=== PATIENT | female | born 1985 | race Caucasian/White ===

== ENCOUNTER 2021-03-04 10:30 | Outpatient (CLI) | payer MEDICAID, SELFPAY ==
[2021-03-04 18:41] LABS: Basophils Percent Auto 0.4 % (0.2-1.2); Eosinophils Absolute Auto 0.1 K/mm3 (0-0.3); Eosinophils Percent Auto 1.2 % (0-4.4); Hematocrit 42.5 % (37.0-47.0); Hemoglobin 13.8 g/dL (12.0-15.0); Immature Granulocyte Absolute 0.11 K/mm3 (0.00-0.031); Immature Granulocyte Percent A 1.2 % (0-0.5); Lymphocytes Absolute Auto 1.85 K/mm3 (0.9-3.2); Lymphocytes Percent Auto 19.9 % (18.3-44.2); Mean Corpuscular HGB Conc 32.5 g/dl (32-36); Mean Corpuscular Hemoglobin 29.4 pg (26-34); Mean Corpuscular Volume 90.6 fl (80-100); Mean Platelet Volume 11.3 fl (7.4-10.4); Monocytes Absolute Auto 0.6 K/mm3 (0.1-0.6); Monocytes Percent Auto 6.4 % (2.6-8.5); Neutrophils Absolute Auto 6.6 K/mm3 (1.3-6.7); Neutrophils Percent Auto 70.9 % (45.5-73.1); Platelet Count Result 253 k/mm3 (150-375); Red Blood Count 4.69 M/mm3 (4.2-5.4); White Blood Count 9.3 K/mm3 (4.5-10.0)
[2021-03-04 18:46] LABS: Add Urine Microscopic? NO; Appearance Urine Clear (Clear); Bilirubin Urine Negative (Negative); Blood Urine Negative (Negative); Color Urine Yellow (Yellow); Glucose Urine UA Negative (Negative); Ketones Urine Negative (Negative); Leukocyte Esterase Ur Negative LEU/UL (NEGATIVE); Nitrate Urine Negative (Negative); Protein Urine Negative (Negative); Specific Grav Ur 1.011 (1.001-1.035); Urobilinogen Urine Negative mg/dL (<2.0)
[2021-03-04 19:12] LABS: Vitamin D 25 Hydroxy 31.8 ng/mL
[2021-03-04 23:35] LABS: Hepatitis B Surface Antigen Negative (Negative)
[2021-03-04 23:39] LABS: HIV 1/2 Ab P24 Ag Result Negative (Negative)
[2021-03-04 23:47] LABS: Hepatitis C Virus Antibody Negative (Negative)
[2021-03-05 10:14] LABS: Rapid Plasma Reagin Non-Reactive (NonReactive)
[2021-03-11 15:21] LABS: CF Result NEGATIVE (NEGATIVE); Ethnicity NG
[2021-03-11 21:57] LABS: Hematocrit 41.2 % (35.0-45.0); Hemoglobin 13.5 g/dL (11.7-15.5); MCH 29.9 pg (27.0-33.0); MCV 91.4 FL (80.0-100.0); RDW 14.8 % (11.0-15.0); Red Blood Cell Count 4.51 Mill/uL (3.80-5.10)
== END 2021-03-04 10:31 | disposition home or self-care (01) ==
PROVIDERS: Visit Provider Obstetrics & Gynecology
DX: Z34.90 Encounter for supervision of normal pregnancy, unspecified, unspecified trimester (principal); Z3A.00 Weeks of gestation of pregnancy not specified
CPT/HCPCS: 36415; 81003; 81220; 81243; 82306; 83021; 84443; 85025; 86592; 86703; 86762; 86787; 86803; 86850; 86900; 86901; 87086; 87088; 87340; G0432

== ENCOUNTER 2021-04-17 10:10 | Outpatient (CLI) | payer BC, SELFPAY ==
[2021-04-24 14:03] LABS: AFP, Serum 57.5; Estriol, Free 2.74; Inhibin A, Dimeric 129; hCG MoM 0.74; hCG, Serum 12.6
[2021-04-24 14:04] LABS: Maternal Weight 175; Number of Fetuses 1
[2021-04-24 14:05] LABS: Cigarette Smoker N
== END 2021-04-17 10:11 | disposition home or self-care (01) ==
PROVIDERS: PCP Obstetrics & Gynecology; Visit Provider Obstetrics & Gynecology
DX: Z36.1 Encounter for antenatal screening for raised alphafetoprotein level (principal)
CPT/HCPCS: 36415; 82105; 82677; 84702; 86336

== ENCOUNTER 2021-05-29 11:09 | Outpatient (CLI) | payer BC, SELFPAY ==
[2021-05-29 12:41] LABS: Glucose 1 Hour PP 50gm Dose 154 mg/dL
== END 2021-05-29 11:10 | disposition home or self-care (01) ==
PROVIDERS: Visit Provider Obstetrics & Gynecology
DX: Z34.90 Encounter for supervision of normal pregnancy, unspecified, unspecified trimester (principal); Z3A.00 Weeks of gestation of pregnancy not specified
CPT/HCPCS: 36415; 82947

== ENCOUNTER 2021-06-05 07:38 | Outpatient (CLI) | payer BC, SELFPAY ==
[2021-06-05 08:17] LABS: Basophils Percent Auto 0.4 % (0.2-1.2); Eosinophils Absolute Auto 0.2 K/mm3 (0-0.3); Eosinophils Percent Auto 2.1 % (0-4.4); Hemoglobin 12.3 g/dL (12.0-15.0); Immature Granulocyte Absolute 0.27 K/mm3 (0.00-0.031); Immature Granulocyte Percent A 2.5 % (0-0.5); Lymphocytes Percent Auto 21.2 % (18.3-44.2); Mean Corpuscular HGB Conc 32.4 g/dl (32-36); Mean Corpuscular Hemoglobin 29.6 pg (26-34); Mean Corpuscular Volume 91.6 fl (80-100); Monocytes Absolute Auto 0.9 K/mm3 (0.1-0.6); Monocytes Percent Auto 8.2 % (2.6-8.5); Neutrophils Absolute Auto 7.1 K/mm3 (1.3-6.7); Neutrophils Percent Auto 65.6 % (45.5-73.1); Platelet Count Result 236 k/mm3 (150-375); Red Blood Count 4.15 M/mm3 (4.2-5.4); White Blood Count 10.9 K/mm3 (4.5-10.0)
[2021-06-05 08:24] LABS: Glucose Fasting Gestational 87 mg/dL (>/=95)
[2021-06-05 09:07] LABS: HIV 1/2 Ab P24 Ag Result Negative (Negative)
[2021-06-05 10:04] LABS: Glucose 1 Hour Gest 141 mg/dL (>/=180)
[2021-06-05 10:52] LABS: Glucose 2 Hour Gest 132 mg/dL (>/= 155)
[2021-06-05 11:40] LABS: Rapid Plasma Reagin Non-Reactive (NonReactive)
[2021-06-05 11:57] LABS: Glucose 3 Hour Gest 92 mg/dL (>/=140)
== END 2021-06-05 07:39 | disposition home or self-care (01) ==
PROVIDERS: Visit Provider Obstetrics & Gynecology
DX: O99.810 Abnormal glucose complicating pregnancy (principal); Z3A.00 Weeks of gestation of pregnancy not specified
CPT/HCPCS: 36415; 82951; 82952; 85025; 86592; 86703; G0432

== ENCOUNTER 2021-06-26 16:28 | Observation (INO) | payer BC, SELFPAY ==
[2021-06-26 16:41] VITALS: BP 117/81; PULSE 79; RESP 18; TEMP 37.1
[2021-06-26 17:10] VITALS: BMI 28.9
--- NOTE | 2021-07-08 15:08 | PM.OBTRLD ---
OB - Triage/Final Diagnosis Visit Information Comments/Additional reasons for admission: I have assessed the risk for this patient, Anamika Ortiz, and determined that she would benefit from observation care. Final Diagnosis (1) Decreased movement: Code(s): O36.8190 - Decreased movements, unspecified trimester, not applicable or unspecified Status: Acute
== END 2021-06-26 17:30 | disposition home or self-care (01) ==
PROVIDERS: Admitting Provider Obstetrics & Gynecology; Visit Provider Obstetrics & Gynecology
DX: O36.8130 Decreased fetal movements, third trimester, not applicable or unspecified (principal); Z3A.30 30 weeks gestation of pregnancy
CPT/HCPCS: G0378; G0379

== ENCOUNTER 2021-07-06 10:11 | Outpatient (RCR) | payer BC, SELFPAY ==
[2021-07-07] MEDS: RHO(D) IMMUNE GLOBULIN 300 MCG/2 ML SYRINGE IM (14:15)
== END 2021-10-04 23:59 | disposition home or self-care (01) ==
LOC: ANHLAB 10:11
PROVIDERS: Visit Provider Obstetrics & Gynecology
DX: Z29.13 Encounter for prophylactic Rho(D) immune globulin (principal); O36.0190 Maternal care for anti-D [Rh] antibodies, unspecified trimester, not applicable or unspecified; Z3A.00 Weeks of gestation of pregnancy not specified
CPT/HCPCS: 36415; 85461; 90384; 96372; J2790

== ENCOUNTER 2021-07-29 12:01 | Outpatient (CLI) | payer BC, SELFPAY ==
[2021-07-29] VITALS (71 sets, daily range): BP systolic 93–137; BP diastolic 54–89; PULSE 57–86; TEMP 37.2; O2SAT 91–100; BMI 29.7
--- NOTE | 2021-07-29 12:36 | PC.NURSE ---
Dr. Veloz informed of pt's arrival with c/o headache for most of the week. Discussed initial BP that was taken before 5 mins of rest by pc tech and additional BP's. Orders received.
[2021-07-29] MEDS: ACETAMINOPHEN 500 MG TABLET 1000 MG PO (14:15)
[2021-07-29 14:29] LABS: Basophils Percent Auto 0.2 % (0.2-1.2); Eosinophils Absolute Auto 0.1 K/mm3 (0-0.3); Hemoglobin 12.9 g/dL (12.0-15.0); Immature Granulocyte Absolute 0.18 K/mm3 (0.00-0.031); Immature Granulocyte Percent A 1.7 % (0-0.5); Lymphocytes Absolute Auto 1.62 K/mm3 (0.9-3.2); Lymphocytes Percent Auto 15.2 % (18.3-44.2); Mean Corpuscular HGB Conc 33.9 g/dl (32-36); Mean Corpuscular Hemoglobin 31.1 pg (26-34); Mean Corpuscular Volume 91.6 fl (80-100); Mean Platelet Volume 11.2 fl (7.4-10.4); Monocytes Absolute Auto 0.8 K/mm3 (0.1-0.6); Monocytes Percent Auto 7.1 % (2.6-8.5); Neutrophils Percent Auto 74.8 % (45.5-73.1); Platelet Count Result 225 k/mm3 (150-375); Red Blood Count 4.15 M/mm3 (4.2-5.4); Red Cell Distribution Width 12.7 % (11.5-14.5); White Blood Count 10.7 K/mm3 (4.5-10.0)
[2021-07-29 14:32] LABS: Add Urine Microscopic? YES; Appearance Urine Cloudy (Clear); Bilirubin Urine Negative (Negative); Blood Urine Negative (Negative); Color Urine Yellow (Yellow); Glucose Urine UA 1+ mg/dL (Negative); Ketones Urine Negative (Negative); Leukocyte Esterase Ur Negative LEU/UL (Negative); Mucus Urine Rare /lpf; Nitrate Urine Negative (Negative); Protein Urine Negative (Negative); RBC Urine 0-2 /hpf (0-2); Specific Grav Ur 1.009 (1.001-1.035); Squamous Epithelial Cell Urine Many /hpf (Few); Urobilinogen Urine Negative mg/dL (<2.0); WBC Urine 0-3 /hpf
[2021-07-29 14:38] LABS: Alanine Aminotransferase 18 U/L (4-35); Albumin Level 3.8 g/dL (3.5-5.1); Alkaline Phosphatase 93 U/L (38-126); Anion Gap 10 mmol/L (8-16); Aspartate Amino Transferase 21 U/L (14-36); Bilirubin,Total 0.3 mg/dL (0.2-1.3); Blood Urea Nitrogen 7 mg/dL (7-17); Calcium 9.1 mg/dL (8.4-10.2); Carbon Dioxide 21 mmol/L (22-30); Chloride 107 mmol/L (98-107); Estimated Glomerular Filt Rate > 60; Glucose 127 mg/dL (65-110); Potassium 3.8 mmol/L (3.4-5.0); Sodium 138 mmol/L (137-145); Uric Acid 4.6 mg/dL (2.5-7.5)
--- NOTE | 2021-07-29 15:57 | PC.NURSE ---
Called Dr. Veloz and she had already reviewed pt's labs (except Total protein/creatinine ratio that isn't back yet), and BP's. Informed her pt's headache isn't any better. Orders received.
[2021-07-29 16:53] LABS: Total Protein Urine Random 9 mg/dL; Ur Ttl Prot Creatinine Ratio 0.23 mg/mg (0-0.20)
--- NOTE | 2021-07-29 17:38 | PC.NURSE ---
Dr. Veloz informed of total protein/creatinine ratio, headache still a 4 after both Fioricets. Discussed pt's poor food intake today- cereal this morning, bagel on the way here, Shayla Mist and saltines here when she was nauseated. Encouraged to eat when nausea resolved, but just finally recently ordered food. Order for discharge received.
--- NOTE | 2021-07-29 17:46 | PC.NURSE ---
Pt eating before going home.
== END 2021-07-29 18:02 | disposition home or self-care (01) ==
LOC: ANHOBOP 12:06 → ANHOBPP 12:06
PROVIDERS: Visit Provider Obstetrics & Gynecology
DX: O13.9 Gestational [pregnancy-induced] hypertension without significant proteinuria, unspecified trimester (principal); Z3A.00 Weeks of gestation of pregnancy not specified
CPT/HCPCS: 36415; 59025; 80053; 81001; 82570; 84156; 84550; 85025; 99199; A9270

== ENCOUNTER 2021-08-09 16:48 | Inpatient (IN) | payer BC, SELFPAY ==
[2021-08-09] VITALS (10 sets, daily range): BP systolic 98–149; BP diastolic 57–92; PULSE 68–91; TEMP 36.6; BMI 30.3
--- NOTE | 2021-08-09 16:48 | LDADM ---
This patient, Anamika Ortiz, was admitted to Labor/Delivery/Recovery 108 on 08/09/21 at 16:48. Plans for labor, pain management and were discussed with patient. Patient/family oriented to hospital policies and general routines including ID bracelet, bed and alarms, visiting hours, pain management, procedures, bathroom and other care routines, personal items, smoking policy, room service/diet and guest tray routines, security routines, and visiting hours. Patient/Family are encouraged to report perceived risks to care and to ask questions if they do not understand what they are told or what they should do. See OBIX for further documentation.
[2021-08-09 17:31] LABS: Basophils Percent Auto 0.2 % (0.2-1.2); Eosinophils Absolute Auto 0.1 K/mm3 (0-0.3); Eosinophils Percent Auto 0.6 % (0-4.4); Hematocrit 38.2 % (37.0-47.0); Hemoglobin 13.1 g/dL (12.0-15.0); Immature Granulocyte Absolute 0.15 K/mm3 (0.00-0.031); Immature Granulocyte Percent A 1.2 % (0-0.5); Lymphocytes Absolute Auto 1.66 K/mm3 (0.9-3.2); Lymphocytes Percent Auto 13.6 % (18.3-44.2); Mean Corpuscular HGB Conc 34.3 g/dl (32-36); Mean Corpuscular Hemoglobin 30.9 pg (26-34); Mean Corpuscular Volume 90.1 fl (80-100); Mean Platelet Volume 11.5 fl (7.4-10.4); Monocytes Absolute Auto 0.8 K/mm3 (0.1-0.6); Monocytes Percent Auto 6.9 % (2.6-8.5); Neutrophils Absolute Auto 9.5 K/mm3 (1.3-6.7); Neutrophils Percent Auto 77.5 % (45.5-73.1); Platelet Count Result 238 k/mm3 (150-375); Red Blood Count 4.24 M/mm3 (4.2-5.4); White Blood Count 12.3 K/mm3 (4.5-10.0)
[2021-08-09] MEDS: DINOPROSTONE 10 MG VAG INSERT VAGINAL (17:37)
[2021-08-09 17:43] LABS: Alanine Aminotransferase 23 U/L (4-35); Albumin Level 4.1 g/dL (3.5-5.1); Alkaline Phosphatase 110 U/L (38-126); Anion Gap 11 mmol/L (8-16); Aspartate Amino Transferase 27 U/L (14-36); Bilirubin,Total 0.3 mg/dL (0.2-1.3); Blood Urea Nitrogen 6 mg/dL (7-17); Carbon Dioxide 19 mmol/L (22-30); Chloride 105 mmol/L (98-107); Estimated CRCL calculation 120 ml/min; Estimated Glomerular Filt Rate > 60; Glucose 118 mg/dL (65-110); Potassium 3.9 mmol/L (3.4-5.0); Sodium 135 mmol/L (137-145); Uric Acid 5.6 mg/dL (2.5-7.5)
[2021-08-10] VITALS (187 sets, daily range): BP systolic 78–152; BP diastolic 39–94; PULSE 62–266; RESP 16; TEMP 36.4–37.3; O2SAT 94–100
[2021-08-10] MEDS: fentaNYL CITRATE INJ (*CRX) 100 MCG/2 ML VIAL 50 MCG IV PUSH ×2 (01:38→02:56)
[2021-08-10] MEDS: LACTATED RINGERS 1,000 ML 125 ML IV CONT ×3 (05:43→13:24)
[2021-08-10] MEDS: OXYTOCIN 30 UNITS/NS 500 ML 30 UNITS/500 ML BAG 6 UNITS IV CONT (05:44)
--- NOTE | 2021-08-10 06:27 | WPDANESEPP ---
Anes - Eval Pre Procedure Procedure: Labor epidural Date/Time: 08/10/21 06:27 Surgeon: Magdiel Preop Diagnosis: Abd pain with contractions Pre Op Diagnosis: Induction of Labor Patient Data Age: 35 Gender: F Height: 1.66 m Weight: 84 kg Last Vital Signs Temp 98 F 08/09/21 17:11 Pulse 82 08/10/21 06:26 BP 115/63 08/10/21 06:26 Pulse Ox 98 08/10/21 06:26 Allergies Allergy/AdvReac Type Severity Reaction Status Date / Time peanut Allergy Severe Anaphylaxis Verified 08/05/21 12:32 Home Medications Medication Instructions Recorded Confirmed Type prenat.vits,misbah,ftm-zvoj-tfesf 1 tablet PO DAILY 02/03/21 08/09/21 History Unisom (doxylamine) 25 mg PO HS PRN 06/26/21 08/09/21 History calcium carbonate [Tums] 200 mg PO QID PRN 06/26/21 08/09/21 History acetaminophen [Tylenol Extra 1,000 mg PO Q6H PRN 07/29/21 08/09/21 History Strength] Laboratory Tests 08/09/21 08/09/21 08/09/21 17:16 17:16 17:16 WBC 12.3 K/mm3 H K/mm3 (4.5-10.0) RBC 4.24 M/mm3 M/mm3 (4.2-5.4) Hgb 13.1 g/dL g/dL (12.0-15.0) Hct 38.2 % % (37.0-47.0) MCV 90.1 fl fl (80-100) MCH 30.9 pg pg (26-34) MCHC 34.3 g/dl g/dl (32-36) RDW 13.0 % % (11.5-14.5) Plt Count 238 k/mm3 k/mm3 (150-375) MPV 11.5 fl H fl (7.4-10.4) Immature Gran % (Auto) 1.2 % H % (0-0.5) Neut % (Auto) 77.5 % H % (45.5-73.1) Lymph % (Auto) 13.6 % L % (18.3-44.2) Mcleod % (Auto) 6.9 % % (2.6-8.5) Eos % (Auto) 0.6 % % (0-4.4) Baso % (Auto) 0.2 % % (0.2-1.2) Lymph # (Auto) 1.66 K/mm3 K/mm3 (0.9-3.2) Mcleod # (Auto) 0.8 K/mm3 H K/mm3 (0.1-0.6) Eos # (Auto) 0.1 K/mm3 K/mm3 (0-0.3) Baso # (Auto) 0.0 K/mm3 K/mm3 (0.0-0.1) Abs Immat Gran (auto) 0.15 K/mm3 H K/mm3 (0.00-0.031) Absolute Neuts (auto) 9.5 K/mm3 H K/mm3 (1.3-6.7) Absolute Nucleated RBC 0.0 K/mm3 K/mm3 (0.0-0.012) Nucleated RBC % 0.0 % % (0.0-0.2) Sodium 135 mmol/L L mmol/L (137-145) Potassium 3.9 mmol/L mmol/L (3.4-5.0) Chloride 105 mmol/L mmol/L (98-107) Carbon Dioxide 19 mmol/L L mmol/L (22-30) Anion Gap 11 mmol/L mmol/L (8-16) BUN 6 mg/dL L mg/dL (7-17) Creatinine 0.60 mg/dL L mg/dL (0.7-1.0) Estim Creat Clear Calc 120 ml/min ml/min Estimated GFR > 60 (59 - ) Glucose 118 mg/dL H mg/dL (65-110) Uric Acid Cancelled 5.6 mg/dL mg/dL (2.5-7.5) Calcium 9.0 mg/dL mg/dL (8.4-10.2) Total Bilirubin 0.3 mg/dL mg/dL (0.2-1.3) AST 27 U/L U/L (14-36) ALT 23 U/L U/L (4-35) Alkaline Phosphatase 110 U/L U/L (38-126) Total Protein 7.0 g/dL g/dL (6.3-8.2) Albumin 4.1 g/dL g/dL (3.5-5.1) RPR Blood Type Antibody Screen Antibody Identification Antigen Identification [place], IgG Interpret [place], Poly Interpret [place], Complement Interp 08/09/21 08/09/21 17:16 17:16 WBC RBC Hgb Hct MCV MCH MCHC RDW Plt Count MPV Immature Gran % (Auto) Neut % (Auto) Lymph % (Auto) Mcleod % (Auto) Eos % (Auto) Baso % (Auto) Lymph # (Auto) Mcleod # (Auto) Eos # (Auto) Baso # (Auto) Abs Immat Gran (auto) Absolute Neuts (auto) Absolute Nucleated RBC Nucleated RBC % Sodium Potassium Chloride Carbon Dioxide Anion Gap BUN Creatinine Estim Creat Clear Calc Estimated GFR Glu
--- NOTE | 2021-08-10 06:31 | PM.IMHP ---
H&P: HPI History of Present Illness Date/Time: 08/10/21 06:31 G1 at 37+2 for induction of labor due to gestational hypertension. She denies JUAN/visual changes. Normal movement. Occasional contractions. No leaking fluid or bleeding. c/b right club foot adn possible polydactyly, [facility] Chief Complaint: gestational hypertension Review of Systems Review of Systems: All systems reviewed & are unremarkable except as noted in HPI and below PMFSH Past Medical History Medical History (Updated 08/10/21 @ 06:35 by Cici Veloz MD) Allergies Anxiety Headache and not yet delivered Surgical History Surgical History H/O hand surgery Family History Family History Father Diabetes mellitus Hypertension Mother Depression Heart problem Sibling Depression Grandparent Diabetes mellitus Depression Social History Social History Smoking status: Never smoker Alcohol intake: former Substance use: never Spiritual care concerns: No Meds Home Medications and Allergies Home Medications Medication Instructions Recorded Confirmed Type prenat.vits,misbah,snz-biho-ybsyr 1 tablet PO DAILY 02/03/21 08/09/21 History Unisom (doxylamine) 25 mg PO HS PRN 06/26/21 08/09/21 History calcium carbonate [Tums] 200 mg PO QID PRN 06/26/21 08/09/21 History acetaminophen [Tylenol Extra 1,000 mg PO Q6H PRN 07/29/21 08/09/21 History Strength] Allergies Allergy/AdvReac Type Severity Reaction Status Date / Time peanut Allergy Severe Anaphylaxis Verified 08/05/21 12:32 Vital Signs Vital Signs - 24 hr 08/09/21 17:11 08/09/21 17:12 08/09/21 17:15 Temperature 36.6 C Pulse Rate 82 68 Blood Pressure 137/86 126/88 Pulse Oximetry 08/09/21 17:46 08/09/21 18:00 08/09/21 18:15 Temperature Pulse Rate 78 88 87 Blood Pressure 140/72 98/57 L 106/68 Pulse Oximetry 08/09/21 18:30 08/09/21 18:45 08/09/21 19:15 Temperature Pulse Rate 85 91 85 Blood Pressure 116/60 111/71 111/62 Pulse Oximetry 08/09/21 19:30 08/10/21 00:08 08/10/21 03:22 Temperature Pulse Rate 83 73 65 Blood Pressure 149/92 H 141/92 H 129/89 Pulse Oximetry 08/10/21 05:39 08/10/21 06:06 08/10/21 06:11 Temperature Pulse Rate 63 Blood Pressure 133/81 Pulse Oximetry 100 99 08/10/21 06:12 08/10/21 06:14 08/10/21 06:15 Temperature Pulse Rate 84 96 266 H Blood Pressure 152/88 H 137/77 130/80 Pulse Oximetry 08/10/21 06:16 08/10/21 06:17 08/10/21 06:18 Temperature Pulse Rate 241 H 88 Blood Pressure 143/76 H 120/67 Pulse Oximetry 100 08/10/21 06:20 08/10/21 06:21 08/10/21 06:22 Temperature Pulse Rate 86 79 Blood Pressure 123/78 120/67 Pulse Oximetry 98 08/10/21 06:24 08/10/21 06:26 08/10/21 06:28 Temperature Pulse Rate 84 82 80 Blood Pressure 108/66 115/63 126/65 Pulse Oximetry 98 08/10/21 06:30 Temperature Pulse Rate 79 Blood Pressure 115/71 Pulse Oximetry Exam Const: General: healthy appearing, alert and awake Resp: Auscultation: clear to auscultation bilaterally Cardio: Rate: regular rate Rhythm: regular rhythm GI: Inspection: distended GI Palp: Yes Soft to palpation, Yes Tenderness to palpation present (GI) and Yes Other GI palpation findings present (gravid) : Manual OB Exam: dilated fingertip, effaced 25% and station -2 H&P: Results Labs Labs: Short CBC 08/09/21 08/09/21 Range/Units 17:16 17:16 WBC 12.3 H (4.5-10.0) K/mm3 Hgb 13.1 (12.0-15.0) g/dL Hct 38.2 (37.0-47.0) % Plt Count 238 (150-375) k/mm3 Blood Type O Negative Antibody Screen Positive Antibody Identification Passive Due to RH Imm Glob Antigen Identification Cancelled [place], IgG Interpret Not Performed D
[2021-08-10] MEDS: ONDANSETRON INJ 4 MG/2 ML VIAL IV PUSH ×3 (06:51→18:40)
[2021-08-10] MEDS: PHENYLEPHRINE 1,000 MCG/10 ML SYRINGE 100 MCG IV PUSH ×2 (06:55→12:48)
--- NOTE | 2021-08-10 08:12 | WPDOBADMIT ---
Obstetrics - Admit Note Admission Note: record reviewed. No pertinent additions to the history and/or any subsequent changes in the physical findings that are not consistent with the expected course of the were found. Additions to the history and/or subsequent changes in the physical findings follow. Cervix /-2. AROM with lightly bloody fluid noted. Fetus reactive with no decels in last 30-45 minutes, had a few late decels and one prolonged just after epidural placed and maternal BP dropped, but all that resolved. FHT category II. Continue pitocin. GBS negative. Plan to collect cord blood microarray per genetics after
[2021-08-10 10:40] LABS: Rapid Plasma Reagin Non-Reactive (NonReactive)
--- NOTE | 2021-08-10 15:53 | PM.OBPRVD ---
OB - Delivery Note Procedure Delivery date: 08/10/21 Procedure: events: Induced HTN and Labor Induction Induction method: per misoprostol protocol and per pitocin protocol Delivery augmentation: rupture of membranes Delivery monitor: external FHT and internal uterine Route of delivery: Episiotomy description: None Laceration Description: Periurethral (left) and Perineal - 1st Degree Delivery repair: vicryl (3-0) Specimen: Yes (placenta) Quantitative Blood Loss (ml): 92 Anesthesia type: Epidural Disposition: floor Complications: fleshy extra digit on one hand, right club foot Baby Date of : 08/10/21 Weeks of gestation at delivery: 37 Infant gender: Female Weight (pounds): 4 Weight (ounces): 13 presentation: vertex position: Right Occiput Anterior Placenta delivery description: Spontaneous cord vessel description: 3 Vessels and Clamped/Cut (cord short, unable to put baby on mom's chest until cord clamped) score one minute: 9 score five minutes: 9
[2021-08-10] MEDS: OXYTOCIN 30 UNITS/NS 500 ML 30 UNITS/500 ML BAG 125 UNITS IV CONT (17:07)
[2021-08-10] MEDS: BENZOCAINE 20% AER SPR (*SP) 56 GM CAN 1 SPRAY TOPICAL (18:18)
[2021-08-10] MEDS: WITCH HAZEL 40 PADS 1 PAD TOPICAL (18:18)
[2021-08-10] MEDS: ACETAMINOPHEN 325 MG TABLET 650 MG PO (18:18)
--- NOTE | 2021-08-10 19:45 | OBPPTRN ---
Patient transferred to post room #283 via wheelchair. Support person present. Oriented to unit, room, information board, rooming in, admission packet and security measures. Patient verbalizes understanding. with patient.
[2021-08-10] MEDS: IBUPROFEN 600 MG TABLET PO (22:46)
[2021-08-11 03:19] VITALS: BP 115/78; PULSE 62; RESP 16; TEMP 36.5; O2SAT 99
[2021-08-11 05:15] LABS: Hematocrit 35.9 % (37.0-47.0); Hemoglobin 12.3 g/dL (12.0-15.0)
--- NOTE | 2021-08-11 07:44 | PM.OBPNVD ---
OB - PN: Subj Subjective Date/time seen: 08/11/21 07:44 Patient comments: no complaints, pain well controlled and other (Lochia similar to menses. No JUAN/visual changes) [place] baby status: doing well OB - PN: Obj Data Labs CBC & Chem 7: 08/11/21 04:55 08/09/21 17:16 Labs: Laboratory Results - last 24 hr 08/09/21 08/11/21 17:16 04:55 Hgb 12.3 Hct 35.9 L RPR Non-reactive OB - PN A/P Assessment and Plan (1) Gestational hypertension: Code(s): O13.9 - Gestational [-induced] hypertension without significant proteinuria, unspecified trimester Status: Acute Assessment and Plan: Asymptomatic, BP normal since delivery. Observe. Plan discharge tomorrow (2) Club foot, , affecting care of mother, antepartum: Code(s): O35.8XX0 - Maternal care for other (suspected) abnormality and damage, not applicable or unspecified Status: Acute Assessment and Plan: Right club foot and right polydactyly on side of thumb. Microarray ordered for genetics. Baby is supposed to follow up with orthopedics later this week, parents advised to call today to set up appointment Plan day: 1 (s/p vaginal delivery, doing well) Plan: routine care Time Spent With Patient Time: Total time spent is greater than 50% in coordination of care (as documented) at patient's floor/unit and/or counseling patient: Exam Const: General: no acute distress GI: Inspection: other (Fundus firm and nontender at umbilicus) GI Palp: Yes Soft to palpation and No Tenderness to palpation present (GI) Extrem: General: no edema
[2021-08-11 08:10] VITALS: BP 114/70; PULSE 72; RESP 16; TEMP 37.1; O2SAT 100
[2021-08-11] MEDS: MULTIVIT/MIN/PREN/FOL AC/IRON TABLET 1 TAB PO (08:40)
[2021-08-11] MEDS: IBUPROFEN 600 MG TABLET PO ×2 (08:41→20:05)
[2021-08-11] MEDS: DOCUSATE SODIUM 100 MG CAPSULE PO (08:42)
--- NOTE | 2021-08-11 10:36 | WPDANLDPN2 ---
Anes-Prog Note L&D Date/Time: 08/11/21 10:36 Comfortable throughout: labor and delivery Neuraxial method: epidural Epidural/Spinal procedure site: clean & non-tender Neuro status: Neuro function grossly intact. Cardiovascular status: normal Respiratory status: normal Airway patency: baseline Mental status: baseline Post-Op hydration status: normal Vital Signs: Last Vital Signs Temp 37.1 C 08/11/21 08:10 Pulse 72 08/11/21 08:10 Resp 16 08/11/21 08:10 BP 114/70 08/11/21 08:10 Pulse Ox 100 08/11/21 08:10 Pain score (VAS): 3 I/O: Intake & Output 08/10/21 08/11/21 08/11/21 23:59 07:59 15:59 Intake Total 500 1800 Balance 500 1800 Post-procedural complaints: none Patient feedback: Patient satisfied with anesthetic care.
[2021-08-11] MEDS: RHO(D) IMMUNE GLOBULIN 300 MCG/2 ML SYRINGE IM (11:09)
[2021-08-11] MEDS: ACETAMINOPHEN 325 MG TABLET 650 MG PO (11:19)
--- NOTE | 2021-08-11 11:35 | PC.NURSE ---
Consulted with patient, reviewed feeding cues, frequencies, duration of feedings, feeding elimination flow sheet, and signs of adequate intake. Demonstrated stimulation techniques to wake for feeding. Assisted with to breast. Reviewed positioning/alignment, holding breast and asymmetrical latch on. was able to latch correctly. Infant nursed eagerly, with steady draws and frequent swallowing noted. Reviewed signs of a correct latch, effective nursing and suck swallow ratio. was able to maintain latch without discomfort to mother. Nipple care reviewed. Instructed mother to call out for RN assistance if she is unable to latch for feeding or she has discomfort with nursing. Instructed feeding should be initiated three hours from start of last feeding or if feeding cues are noted before. Mother voiced understanding of information shared.
[2021-08-11 11:43] VITALS: BP 122/73; PULSE 77; RESP 16; TEMP 36.6; O2SAT 100
[2021-08-11 17:00] VITALS: BP 124/79; PULSE 68; RESP 18; TEMP 37; O2SAT 100
--- NOTE | 2021-08-11 18:00 | PC.NURSE ---
Patient viewed the discharge video Mother & Baby Care, The First Two Weeks . Patient was given the opportunity and encouraged to ask questions. Patient verbalized understanding of information shared and has been given the mother/baby guide for home reference.
[2021-08-11 20:00] VITALS: BP 133/79; PULSE 76; RESP 18; TEMP 36.6; O2SAT 100
[2021-08-11 23:45] VITALS: BP 126/76; PULSE 64; RESP 18; TEMP 36.4; O2SAT 100
[2021-08-12] MEDS: IBUPROFEN 600 MG TABLET PO ×2 (03:44→09:32)
[2021-08-12 04:10] VITALS: BP 119/82; PULSE 68; RESP 18; TEMP 36.5; O2SAT 100
--- NOTE | 2021-08-12 07:46 | PM.OBPNVD ---
OB - PN: Subj Subjective Date/time seen: 08/12/21 07:46 Patient comments: no complaints, pain well controlled and other (Lochia similar to menses) baby status: doing well Narrative: No JUAN/visual changes OB - PN: Obj Data Labs CBC & Chem 7: 08/11/21 04:55 08/09/21 17:16 Labs: Laboratory Results - last 24 hr 08/11/21 04:55 Blood Type O Negative Antibody Screen Positive Antibody Identification Passive Due to RH Imm Glob Antigen Identification Cancelled [place], IgG Interpret Cancelled [place], Poly Interpret Cancelled [place], Complement Interp Cancelled Screen Negative Baby's Blood Type A pos Baby's [place] Positive Doses of RhIg Required 1 OB - PN A/P Assessment and Plan (1) Gestational hypertension: Code(s): O13.9 - Gestational [-induced] hypertension without significant proteinuria, unspecified trimester Status: Acute Assessment and Plan: BP normal since delivery, asymptomatic (2) Club foot, , affecting care of mother, antepartum: Code(s): O35.8XX0 - Maternal care for other (suspected) abnormality and damage, not applicable or unspecified Status: Acute Assessment and Plan: She has call in to orthopedics to schedule follow up Plan day: 2 (s/p vaginal delivery, doing well) Plan: routine care, discharge home and other (Follow up in office in 1 week) Time Spent With Patient Time: Total time spent is greater than 50% in coordination of care (as documented) at patient's floor/unit and/or counseling patient: Exam Const: General: no acute distress GI: Inspection: other (Fundus firm and nontender below umbilicus) GI Palp: Yes Soft to palpation and No Tenderness to palpation present (GI) Extrem: General: no edema
--- NOTE | 2021-08-12 07:47 | P.DS_ITS ---
DS: Admitting Diagnosis Discharge Date 08/12/2021 Admitting Diagnosis gestational hypertension DS: Discharge Diagnosis Discharge Diagnosis (1) Gestational hypertension: Code(s): O13.9 - Gestational [-induced] hypertension without significant proteinuria, unspecified trimester Status: Acute (2) (spontaneous vaginal delivery): Code(s): O80 - Encounter for full-term uncomplicated delivery Status: Acute OB - DS: Summary OB Procedures : PIH Mgmt OB Procedures Intrapartum: Spontaneous Vag Delivery OB Procedures: : None Peripartum Data Delivery Method: Natural Vaginal Laceration Description: Periurethral and Perineal - 1st Degree complications: none Status at Discharge Functional status at discharge: independent ambulation Overall status at discharge: patient is progressing back to baseline Time Spent with Patient Time attestation: Total time spent providing and/or coordinating discharge services: Time spent: Less than 30 minutes DS: Data Data Completed and Pending Pending studies at discharge: Pending at discharge 08/10/21 17:04 Surgical [PTH] Routine Labs on day of discharge: Labs from last 24 hours 08/11/21 04:55 Blood Type O Negative Antibody Screen Positive Antibody Identification Passive Due to RH Imm Glob Antigen Identification Cancelled [place], IgG Interpret Cancelled [place], Poly Interpret Cancelled [place], Complement Interp Cancelled Screen Negative Baby's Blood Type A pos Baby's [place] Positive Doses of RhIg Required 1 Discharge Plan Discharge Attending physician on discharge: Cici Veloz Discharging Clinician: Cici Veloz Patient Disposition: Home, Self-Care Activity: may shower and pelvic rest Diet: as tolerated Patient Instructions: Antibiotic Form Stand Alone Forms: General Discharge Information Follow-up/Referrals: Cici Veloz MD [Physician] - 1 Week Discharge Medications: New ibuprofen 600 mg Tablet 600 mg PO Q6H PRN (Reason: Cramping) Qty: 60 RF: 0 Continued prenat.vits,misbah,gzz-jwtl-ehvyv Tablet 1 tablet PO DAILY RF: 0 calcium carbonate [Tums] 200 mg calcium (500 mg) Tablet,Chewable 200 mg PO QID PRN (Reason: Heartburn) RF: 0 Unisom (doxylamine) 25 mg Tablet 25 mg PO HS PRN (Reason: Sleep) RF: 0 acetaminophen [Tylenol Extra Strength] 500 mg Tablet 1,000 mg PO Q6H PRN (Reason: Headache) RF: 0 Date of admission: 08/09/21 16:48 Primary Care Provider: PHYSICIAN,PHONE SPECIALIST Admitting Provider: Cici Veloz Attending physician on admission: Cici Veloz Condition: Stable
--- NOTE | 2021-08-12 08:00 | PC.NURSE ---
PT introductions made and plan of care discussed per post , pain management, breast feeding, bottle feeding, supplementing, pumping and pending discharge to home. PT verbalized understanding of such care. PT received instructions and education per one to one discussion, mom baby care guide and demonstration during this shift. PT and spouse both recipients of such instructions and no barriers to learning identified. PT verbalized understanding of such care.
[2021-08-12] MEDS: MULTIVIT/MIN/PREN/FOL AC/IRON TABLET 1 TAB PO (09:31)
[2021-08-12] MEDS: DOCUSATE SODIUM 100 MG CAPSULE PO (09:31)
[2021-08-12 09:52] VITALS: BP 125/74; PULSE 77; RESP 18; TEMP 36.6; O2SAT 100; O2SAT 98
--- NOTE | 2021-08-12 13:04 | PC.NURSE ---
Addendum entered by Linda Chong RN 08/12/21 15:03: This note was written and performed by Libra Chong RN, CLC not Swathi Vazquez RN. Computer login error. Original Note: Consulted with patient, reviewed infant feeding cues, frequencies, duration of feedings, feeding elimination flow sheet, and signs of adequate intake. Demonstrated stimulation techniques to wake for feeding. No feeding cues present at time of assessment. Mother states she has been supplementing with Enfacare 22cal after every . Infant is down 3.3% and has adequate voids and stools. No latch assessed at this time. Reviewed positioning/alignment, holding breast and asymmetrical latch on. Reviewed signs of a correct latch, effective nursing and suck swallow ratio. Nipple care reviewed. Instructed mother to call out for RN assistance if she is unable to latch for feeding or she has discomfort with nursing. Instructed feeding should be initiated three hours from start of last feeding or if feeding cues are noted before. Mother voiced understanding of information shared. Education provided regarding transition of milk, s/s mastitis, and outpatient services available. Referenced mom/baby care guide. Mother states she is confident in continuing to offer the breast to infant after discharge.
--- NOTE | 2021-08-12 13:30 | PC.NURSE ---
PT received discharge instructions per protocol and verbalized understanding of such instructions. Patient viewed the discharge video Mother & Baby Care, The First Two Weeks . Patient was given the opportunity and encouraged to ask questions. Patient verbalized understanding of information shared and has been given the mother/baby guide for home reference.
--- NOTE | 2021-08-12 14:09 | PC.NURSE ---
PT discharged to home ambulatory accompanied by spouse and and taken to waiting car. Follow up appts confirmed.
[2021-08-14 10:54] VITALS: BP 131/89; PULSE 70; RESP 20; TEMP 37.3; O2SAT 100
== END 2021-08-12 14:09 | disposition home or self-care (01) | DRG 560 ==
LOC: ANHLDR 16:51 → ANHOB2 08-10 21:27
PROVIDERS: Admitting Provider Obstetrics & Gynecology; Visit Provider Obstetrics & Gynecology
DX: O13.4 Gestational [pregnancy-induced] hypertension without significant proteinuria, complicating childbirth (principal); O71.82 Other specified trauma to perineum and vulva; O70.0 First degree perineal laceration during delivery; Z3A.37 37 weeks gestation of pregnancy; Z37.0 Single live birth; O35.8XX0 Maternal care for other (suspected) fetal abnormality and damage, not applicable or unspecified; Q69.0 Accessory finger(s)
CPT/HCPCS: 36415; 80053; 84550; 85014; 85018; 85025; 85461; 86592; 86850; 86880; 86900; 86901; 86902; 88307; 90384; A9270; J2370; J2405; J2590; J2790; J2795; J3010; J7120